=== PATIENT | female | born 1990 | race African-American/Black ===

== ENCOUNTER 2024-01-28 12:46 | Inpatient (IN) ==
[2024-01-28 14:06] LABS: ABS Eosinophils 0.2 10^3/uL (0.0-0.5); ABS Lymphocytes 1.4 10^3/uL (1.0-4.8); ABS Monocytes 0.3 10^3/uL (0.0-0.9); ABS Neutrophils 3.5 10^3/uL (1.5-7.6); Eosinophil % 3.2 %; Hematocrit 38.8 % (35-45); Hemoglobin 12.9 g/dL (11.5-14.3); Lymphocyte % 26.1 %; Mean Corpuscular Hgb Conc 33.2 g/dL (31-36); Mean Corpuscular Volume 90.6 fL (80-97); Mean Platelet Volume 6.7 fL (7.5-11.2); Nucleated Red Blood Cells % 0.1 %/100WBC (0.0-0.8); Platelet Count 374 10^3/uL (150-450); Red Blood Count 4.28 10^6/uL (3.63-4.92); Red Cell Distribution Width 15.8 % (12-17); White Blood Count 5.4 10^3/uL (3.8-11.8)
[2024-01-28 14:59] LABS: ALT 10 U/L (7-52); AST 15 U/L (13-39); Acetaminophen < 15 mcg/mL; Albumin 4.2 g/dL (3.2-5.2); Albumin/Globulin Ratio 1.4 (1-3); Alcohol, S < 13 mg/dL (<13); Alkaline Phosphatase 83 U/L (35-149); Anion Gap 8 mmol/L (2-16); Blood Urea Nitrogen 12 mg/dL (6-24); CO2 Carbon Dioxide 28 mmol/L (22-32); Calcium 9.5 mg/dL (8.6-10.3); Chloride 100 mmol/L (101-111); Creatinine, Serum 0.83 mg/dL (0.51-0.95); Globulin 3.1 g/dL (2-4); Glucose 129 mg/dL (70-100); Potassium 3.6 mmol/L (3.5-5.0); Salicylate < 2.50 mg/dL (<30); Sodium 136 mmol/L (135-145); Total Bilirubin 0.5 mg/dL (0.2-1.0); Total Protein 7.3 g/dL (6.4-8.9); eGFR CKD-EPI 95.4 (>60)
[2024-01-28 15:03] LABS: HCG Pregnancy < 0.60 mIU/mL
[2024-01-28 15:09] LABS: TSH Ultra Thyroid Stim Horm 1.38 mcIU/mL (0.34-5.60)
[2024-01-28 17:09] LABS: Urine Appearance Turbid; Urine Bilirubin Negative (Negative); Urine Blood Negative (Negative); Urine Color Light-Yellow; Urine Glucose Negative (Negative); Urine Ketones Negative (Negative); Urine Nitrite Negative (Negative); Urine Protein Negative (Negative); Urine Specific Gravity 1.012 (1.002-1.030); Urine Urobilinogen Negative (Negative)
[2024-01-28 17:29] LABS: Urine Benzodiazepine Screen None Detected (None Detect); Urine Cannabinoids Screen None Detected (None Detect); Urine Opiates Screen None Detected (None Detect)
[2024-01-28 17:35] LABS: Urine Bacteria 3+ /HPF (Absent); Urine Red Blood Cell Trace(0-2/hpf) /HPF (0-Trace); Urine Squamous Epithelial Cell Present /HPF (Absent); Urine White Blood Cell 1+(6-10/hpf) /HPF (0-Trace)
[2024-01-28] MEDS ORDERED: Al Hydrox/Mg Hydrox/Simet LIQ 30 ML UDC PO PRN (20:36)
[2024-01-29] MEDS: Nicotine Lozenge mini 4 MG LOZNG.MINI MT PRN (00:23)
[2024-01-29 08:29] LABS: HDL Cholesterol 60.1 mg/dL
[2024-01-29] MEDS: Vitamin THERAPEUTIC TAB PO SCH (09:43)
[2024-01-29] MEDS: Nicotine PATCH 14 MG/24 HR PATCH TRANSDERM SCH (09:43)
[2024-01-29] MEDS ORDERED: Albuterol HFA INHALER 8 gm MDI INH PRN (19:10)
[2024-01-29] MEDS ORDERED: LORazepam IM 0-6 mg for WAM protocol IM SCH (20:00)
[2024-01-29] MEDS ORDERED: LORazepam PO 0-6 for WAM protocol PO SCH (20:00)
[2024-01-29] MEDS: Folic Acid TAB* 1 MG DAILY PO SCH (23:08)
[2024-01-29] MEDS: Thiamine TAB* 100 MG TAB DAILY (@ T+1) PO SCH (23:08)
[2024-01-30] MEDS: Nicotine GUM 4MG FRUIT FLAVOR PO PRN (07:54)
[2024-01-31 11:23] VITALS: BP 145/108
== END 2024-01-31 16:49 | disposition home or self-care (01) | DRG 776 ==
LOC: ED 12:46 → EDHOLD 20:24 → BSU 22:47
PROVIDERS: ADMIT Psychiatry & Neurology Addiction Psychiatry; ATTEND Psychiatry & Neurology Psychiatry